=== PATIENT | female | born 1945 | race Caucasian/White ===

== ENCOUNTER 2019-01-12 10:39 | Emergency (ER) | payer MEDICARE, BC ==
[~2019-01-12] VITALS: Ht 160 cm; Wt 117.9 kg
--- NOTE | 2019-01-12 10:45 | NUR ---
PT A/OX4, BIB RA909, DUE TO MECHANICAL GLF. PER PT'S REPORT, PT SLIPPED IN THE RAIN AND LANDED ON HER R SHOULDER. PT DENIES HEAD INJURY/LOC. PT REPORTS THAT SHE ATTEMPTED TO BRACE HER FALL AND IS REPORTING 10/10 PAIN IN THE R SHOULDER, PAIN PROVOKED UPON MOVEMENT, SHARP IN QUALITY, RADIATES DOWN THE ARM. PT PRESENTS W/ A SLING ACROSS THE R SHOULDER AND IS CURRENTLY BRACING HER R SHOULDER. PT DENIES C/P, SOB, N/V/D, DIZZINESS, HEADACHE.
[2019-01-12] MEDS ORDERED: MORPHINE SULFATE 2 MG/1 ML DISP.SYRIN ONE (10:57)
[2019-01-12] MEDS ORDERED: MORPHINE SULFATE 4 MG/1 ML DISP.SYRIN ONE (10:57)
[2019-01-12] MEDS: MORPHINE SULFATE 4 MG/1 ML DISP.SYRIN IM ONE ×2 (11:09→11:12)
--- NOTE | 2019-01-12 11:13 | NUR ---
CONSENT FOR CONSCIOUS SEDATION OBTAINED BY HUMBERTO FLORES. Addendum: 01/12/19 at 1114 by FABIANA PT UNABLE TO SIGN DUE TO INJURY TO R ARM, CONSENT SIGNED BY PT'S SON.
[2019-01-12] MEDS ORDERED: MORPHINE SULFATE 2 MG/1 ML DISP.SYRIN IV ONE (11:15)
[2019-01-12] MEDS ORDERED: PROPOFOL 200 MG/20 ML BOTTLE ONE (11:21)
--- NOTE | 2019-01-12 11:21 | NUR ---
RT CALLED FOR STANDBY.
--- NOTE | 2019-01-12 11:25 | NUR ---
Moderate Sedation for closed reduction of right shoulder dislocation started. Please see written moderate sedation record.
[2019-01-12] MEDS ORDERED: PROPOFOL 200 MG/20 ML BOTTLE IV ONE ×2 (11:30→11:45)
--- NOTE | 2019-01-12 12:00 | NUR ---
PT RESTING COMFORTABLY IN BED. VSS, NO COMPLAINTS AT THIS TIME. FAMILY MEMBERS AT BEDSIDE.
--- NOTE | 2019-01-12 12:50 | NUR ---
Patient discharged to home in stable conditon. Written and verbal after care instructions given. Patient verbalizes understanding of instructions. ALL BELONGINGS W/ PT. PT SELF-AMBULATED W/O DIFFICULTY. 18G IV ACCESS IN L FOREARM REMOVED PRIOR TO D/C- INNER CANNULA INTACT.
--- NOTE | 2019-01-12 12:51 | NUR ---
PT WILL BE DRIVEN HOME BY SON IN PRIVATE VEHICLE.
[2019-01-12 13:00] VITALS: BP 115/60
== END 2019-01-12 13:00 | disposition home or self-care (01) ==
LOC: ER 10:39
DX: S43.004A Unspecified dislocation of right shoulder joint, initial encounter (principal); W01.0XXA Fall on same level from slipping, tripping and stumbling without subsequent striking against object, initial encounter; Y93.89 Activity, other specified; Y92.89 Other specified places as the place of occurrence of the external cause; Y99.8 Other external cause status
CPT/HCPCS: 23650; 73030 ×2; 96374; 99152; 99285; J2270 ×2; A4663; G0500; J3490; J7040